=== PATIENT | female | born 1955 ===

== ENCOUNTER 2018-02-02 09:18 | Observation (INO) ==
--- NOTE | 2018-02-02 10:05 | Emergency Department Note ---
Disposition Clinical Impression: ACS (acute coronary syndrome) Disposition: Home, Self-Care Condition: Good General Adult HPI - General Chief complaint: ED Shortness of Breath/Dyspnea Stated complaint: Cough, Feet /Hands Swelling Time Seen by Provider: 02/02/18 09:31 Source: patient Mode of arrival: private vehicle Limitations: no limitations - History of Present Illness HPI Narrative: 62F PMHx hypertension, hyperlipidemia, CVA, [place] with one stent 5 years ago, presents today with worsening SOB, hand and leg swelling. She went to [facility] on Tuesday and reports symptoms presented soon afterwards. She denies eating seafood or anything abnormal. Unable to recall her medications, but reports lisinopril sounds familiar; states that she has been taking her BP medications without changes for many years. Nothing seems to make dry cough or SOB better or worse. She reports swelling of hands and feet have self-improved overall. Reports subjective fever and chills, denies nausea, vomiting, abdominal pain, diarrhea, dysuria. Follows up closely with cardiology in regards to CAD with stents. Unsure if she is taking any anticoagulation. Patient had 325mg aspirin this morning. Pain Scale: 0 - Related Data Home Medications Medication Instructions Recorded Confirmed Aspirin [Lo-Dose Aspirin EC] 81 mg PO DAILY 02/02/18 02/02/18 Clopidogrel [Plavix] 75 mg PO DAILY 02/02/18 02/02/18 Diphenoxylate/Atropine [Lomotil 1 tab PO DAILY PRN 02/02/18 02/02/18 2.5 mg/0.025 mg] Lisinopril/Hydrochlorothiazide 2 tab PO DAILY 02/02/18 02/02/18 [Zestoretic 20-25 mg Tablet] Metoprolol [Lopressor] 50 mg PO BID 02/02/18 02/02/18 Ranolazine [Ranexa] 1,000 mg PO BID 02/02/18 02/02/18 Rosuvastatin [Crestor] 20 mg PO HS 02/02/18 02/02/18 hydrALAZINE [HydrALAZINE] 50 mg PO TID 02/02/18 02/02/18 Allergies Allergy/AdvReac Type Severity Reaction Status Date / Time Penicillins [PCN] Allergy Hives Verified 02/02/18 09:33 Review of Systems: As Per HPI Constitutional: Reports: fever, chills Eyes: Denies: eye pain Cardiovascular: Reports: dyspnea on exertion. Denies: chest pain, syncope Respiratory: Reports: cough, dyspnea. Denies: wheezes Gastrointestinal: Denies: nausea, vomiting, diarrhea, hematemesis Genitourinary: Denies: dysuria Neurological: Reports: weakness. Denies: headache Endocrine: Denies: heat or cold intolerance, polydipsia, polyuria Past Medical History - Past Medical History Medical history: Reports: CVA, hyperlipidemia, hypertension, myocardial infarction Psychiatric history: Reports: anxiety, depression - Social History Smoking Status: Never smoker Smokeless Tobacco Status: No Alcohol use: Reports: occasionally Drug use: Reports: none Physical Exam - General Limitations: no limitations General appearance: alert, in no apparent distress - Head Head exam: atraumatic, normocephalic, normal inspection - Eye Eye exam: Present: normal appearance - Expanded Eye Exam Pupils: Left: reactive - ENT ENT exam: normal exam, normal oropharynx, mucous membranes moist - Expanded ENT Exam External ear exam: Present: normal external inspection Mouth exam: Present: normal external inspection Teeth exam: Present: normal inspection Throat exam: Present: normal inspection - Neck Neck exam: Present: normal inspection, full ROM, trachea midline - Chest Chest inspection: Present: normal inspection, symmetric chest wall rise - Respiratory Respiratory exam: Present: normal lung sounds bilaterally - Cardiovascular Cardiovascular exam: Present: regular rate, normal rhythm, normal heart sounds - Abdominal Exam Abdominal exam: Present: soft, Non-Tender. Absent: tenderness, distention, guarding, rebound, rigidity - Extremities Exam Extremities exam: Present: normal inspection, full ROM. Absent: tenderness, pedal edema - Expanded Upper Extremity Exam Shoulder exam: Present: normal inspection, full ROM Arm exam: Present: normal inspection, full ROM Elbow exam: Present: normal inspection, full ROM Forearm/Wrist exam: Present: normal inspection, full ROM Hand exam: Present: normal inspection, full ROM Vascular exam: Normal: capillary refill, radial pulse - Expanded Lower Extremity Exam Hip/Pelvis exam: Present: normal inspection, full ROM Upper leg exam: Present: normal inspection, full ROM Knee exam: Present: normal inspection, full ROM Lower leg exam: Present: normal inspection, full ROM Ankle exam: Present: normal inspection, full ROM Foot/toe exam: Present: normal inspection, full ROM Neurovascular/Tendon exam: Absent: motor deficit, sensory deficit, tendon deficit - Back Exam Back exam: Present: normal inspection, full ROM. Absent: tenderness - Neurological Exam Neurological exam: Present: alert, oriented X3 - Expanded Neurological Exam Patient oriented to: Present: person, place, time Coma Scale Eye Opening: Spontaneous Coma Scale Motor Response: Obeys Commands Coma Scale Verbal Response: Oriented Coma Scale Total: 15 - Psychiatric Psychiatric exam: Present: normal affect, normal mood - Skin Skin exam: Present: warm, dry, intact, normal color Course Course Narrative: Patient is in no acute distress. Physical exam unremarkable. Blood pressure elevated despite patient stating compliance and close follow-up with medication. Stat CXR, EKG, BMP ordered. HEART score 4 in the setting of 62F with worsening dypsnea, history of abnormal EKG, no acute changes, previous WA and CVA. Patient expresses symptoms of facial angioedema, dry cough, suggesting adverse effects of chronic lisinopril use. However, due to HEART score 4, medical decision to admit for further cardiac evaluation is recommended. Patient is aware and agreeable to management plan. Spoke with Dr. Lu, who agrees with plan. Pending consult to admitting hospitalist. - Reevaluation(s) Reevaluation #1: Patient without acute changes. Spoke with admitting hospitalist Dr. Green, who recommends to consult patient's current paper machine back tender in regards to her current state and for recommendations. Patient reports her paper machine back tender is Dr. Kunz at [facility]. Pending contact with paper machine back tender. Patient to be admitted for observation. Reevaluation #2: Spoke with Dr. Kunz, paper machine back tender at [facility]. He reports patient had LHC and stress test completed in the last 2 years due to comprehensive CAD history, neither with acute abnormalities. He is agreeable to admitting patient for further evaluation. No further recommendations. Dr. Green aware and agrees to admission. Vital Signs Temperature 98.1 F 02/02/18 09:21 Pulse Rate 85 02/02/18 09:21 Respiratory Rate 22 02/02/18 09:21 Blood Pressure 165/95 02/02/18 09:21 O2 Sat by Pulse Oximetry 98 02/02/18 09:21 Temperature 98.1 F 02/02/18 09:24 Pulse Rate 73 02/02/18 10:51 Respiratory Rate 16 06/07/18 10:51 Blood Pressure 135/84 02/02/18 10:51 O2 Sat by Pulse Oximetry 97 02/02/18 10:51 Oxygen Delivery Oxygen Delivery Room Air Medical Decision Making - Lab Data Result diagrams: 02/02/18 10:10 02/02/18 10:10 Lab Results 02/02/18 02/02/18 Range/Units 10:10 10:10 WBC 8.0 (4.3-11.1) K/mcL RBC 5.08 H (3.82-4.97) M/mcL Hgb 15.2 (11.5-15.4) g/dL Hct 45.5 H (35.3-44.9) % MCV 89.6 (83.0-100.0) fL MCH 29.9 (28.0-33.3) pg MCHC 33.4 (31.6-35.5) g/dL RDW 12.4 (11.5-14.5) % Plt Count 181 (140-400) K/mcL MPV 11.0 (9.4-12.4) fL Immature Gran % 0.4 (0-4) % Seg Neutrophils % 75.5 % Lymphocytes % 15.3 % Monocytes % 6.8 % Eosinophils % 1.4 % Basophils % 0.6 % Neutrophils # 6.0 (1.6-8.9) K/mcL Lymphocytes # 1.2 (0.6-4.6) K/mcL Monocytes # 0.5 (0.0-1.3) K/mcL Eosinophils # 0.1 (0.0-0.6) K/mcL Basophils # 0.1 (0.0-0.2) K/mcL Sodium 139 (136-145) mEq/L Potassium 3.9 (3.5-5.1) mEq/L Chloride 106 (98-107) mEq/L Carbon Dioxide 23 (23-29) mEq/L BUN 13 (8-23) mg/dL Creatinine 0.93 (0.60-1.20) mg/dL Est GFR ( Amer) > 60 (> 60) Est GFR (Non-Af Amer) > 60 (> 60) BUN/Creatinine Ratio 14 (6-26) Glucose 150 H (70-105) mg/dL Calculated Osmolality 291 (280-300) Calcium 9.6 (8.6-10.3) mg/dL Troponin I < 0.03 (< 0.04) ng/mL - EKG Data EKG #1 EKG shows normal: sinus rhythm Rhythm: NSR When compared to previous EKG there are: no significant changes Interpretation: no acute changes, normal EKG
[2018-02-02 10:31] LABS: Basophils # 0.1 K/mcL (0.0-0.2); Basophils % 0.6 %; Eosinophils # 0.1 K/mcL (0.0-0.6); Eosinophils % 1.4 %; Hematocrit 45.5 % (35.3-44.9); Hemoglobin 15.2 g/dL (11.5-15.4); Immature Granulocytes % 0.4 % (0-4); Lymphocytes # 1.2 K/mcL (0.6-4.6); Lymphocytes % 15.3 %; Mean Corpuscular HGB Conc 33.4 g/dL (31.6-35.5); Mean Corpuscular Hemoglobin 29.9 pg (28.0-33.3); Mean Corpuscular Volume 89.6 fL (83.0-100.0); Monocytes # 0.5 K/mcL (0.0-1.3); Monocytes % 6.8 %; Platelet Count 181 K/mcL (140-400); Red Blood Count 5.08 M/mcL (3.82-4.97); Red Cell Distribution Width 12.4 % (11.5-14.5); Segmented Neutrophils % 75.5 %
[2018-02-02 10:52] LABS: BUN/Creatinine Ratio 14 (6-26); Blood Urea Nitrogen 13 mg/dL (8-23); Calcium 9.6 mg/dL (8.6-10.3); Carbon Dioxide 23 mEq/L (23-29); Chloride 106 mEq/L (98-107); Glucose 150 mg/dL (70-105); Osmolality,Calculated 291 (280-300); Potassium 3.9 mEq/L (3.5-5.1); Sodium 139 mEq/L (136-145); eGFR For African Americans > 60 (> 60); eGFR For Non-African Americans > 60 (> 60)
--- NOTE | 2018-02-02 10:55 | Emergency Department Note ---
Disposition Clinical Impression: ACS (acute coronary syndrome) Disposition: Admitted As Inpatient Condition: Good Referrals: NONE,PCP [Primary Care Provider] - Es Gannon [Family Provider] - Forms: ED Satisfaction Letter General Adult HPI - General Chief complaint: ED Shortness of Breath/Dyspnea Stated complaint: Cough, Feet /Hands Swelling Time Seen by Provider: 02/02/18 09:31 Source: patient Mode of arrival: private vehicle Limitations: no limitations - History of Present Illness Pain Scale: 0 - Related Data Allergies Allergy/AdvReac Type Severity Reaction Status Date / Time Penicillins [PCN] Allergy Hives Verified 02/02/18 09:33 Constitutional: Reports: fever, chills Eyes: Denies: eye pain Cardiovascular: Reports: dyspnea on exertion. Denies: chest pain, syncope Respiratory: Reports: cough, dyspnea. Denies: wheezes Gastrointestinal: Denies: nausea, vomiting, diarrhea, hematemesis Neurological: Reports: weakness. Denies: headache Endocrine: Denies: heat or cold intolerance, polydipsia, polyuria Past Medical History - Past Medical History Medical history: Reports: CVA, hyperlipidemia, hypertension, myocardial infarction Psychiatric history: Reports: anxiety, depression - Social History Smoking Status: Never smoker Smokeless Tobacco Status: No Alcohol use: Reports: occasionally Drug use: Reports: none Physical Exam - General Limitations: no limitations General appearance: alert, in no apparent distress Course - Reevaluation(s) Reevaluation #1: ATTESTATION NOTE I examined this patient and my medical decision-making was reviewed with the Resident Physician, Jose Ríos. I agree with the documented findings, disposition and treatment plan as described except to the extent set forth below. I have personally performed a face to face evaluation on this patient. I have reviewed and agree with the care plan. Briefly: 62-year-old female history of coronary artery disease had a cardiac catheterization about a year ago which showed a blockage but they were unable to stented. Resents with dry cough history of swelling around the eyes hands and feet about a week ago which has resolved. Patient is been on lisinopril for about 4 years. Patient's chest is clear no peripheral edema neurologically nonfocal EKG shows nonspecific ST-T changes were with her however comparison with the prior EKG showed no acute ischemic changes. We calculated a heart score and it was for. About 3 usually they recommended admission which we discussed with the patient and reassured decision-making she agreed. No entries been ordered. Patient took an aspirin this morning. Troponin other screening labs pending. Admission disposition pending Time: 10:20 Vital Signs Temperature 98.1 F 02/02/18 09:21 Pulse Rate 85 02/02/18 09:21 Respiratory Rate 22 02/02/18 09:21 Blood Pressure 165/95 02/02/18 09:21 O2 Sat by Pulse Oximetry 98 02/02/18 09:21 Temperature 98.1 F 02/02/18 09:24 Pulse Rate 84 02/02/18 09:35 Respiratory Rate 18 02/02/18 09:35 Blood Pressure 150/115 02/02/18 09:35 O2 Sat by Pulse Oximetry 99 02/02/18 09:35 Oxygen Delivery Oxygen Delivery Room Air
[2018-02-02 11:05] LABS: Troponin I < 0.03 ng/mL (< 0.04)
[2018-02-02] MEDS ORDERED: Acetaminophen 325 MG TABLET PO PRN (13:54)
[2018-02-02] MEDS ORDERED: Naloxone 0.4 MG/ML INJ IVP PRN (13:54)
[2018-02-02] MEDS ORDERED: Diphenoxylate/Atropine 1 TAB TABLET PO PRN (13:56)
[2018-02-02] MEDS ORDERED: Ondansetron 4 MG/2 ML VIAL IVP PRN (14:01)
[2018-02-02] MEDS ORDERED: Nitroglycerin 0.4 MG TAB.SUBL SL PRN (14:01)
[2018-02-02] MEDS ORDERED: GuaiFENesin/Dextromethorphan TABLET PO PRN (14:02)
[2018-02-02] MEDS: hydrALAZINE 25 MG TABLET PO SCH ×2 (14:15→22:00)
--- NOTE | 2018-02-02 15:26 | Internal Med History&Physical ---
<AhsanMatthew Tamayo - Last Filed: 02/02/18 16:04> Date of Encounter: 02/02/18 Time of Encounter: 13:00 Internal Medicine - H&P: HPI Chief complaint: CP Admitted From: Emergency Dept Plans for Post Hospital Care: Home History of present illness: Ms. Raphael is a 62 year old female w/PMH of CVA 4 years ago, HLD, HTN, and myocardial infarction 4 years ago presents from the ED with chief complaint of chest pain today that is centralized in her chest as chest pressure and radiates to the left and right arms. Pt. reports she has hx of angina. States she went to beach 1 week ago and had swelling in bilateral UEs and LEs which has now resolved. Denies dx of CHF. States that sx come on at rest or w/ exertion. Reports exhaustion after sx that are accompanied by heart flutter and palpitations. Reports fatigue for two weeks, dry cough, chills, nausea, and diarrhea. No recent abx. Pt. denies vomiting, headache, changes in vision, SOB, abdominal pain, unusual bleeding, constipation, dizziness, lightheadedness, pre- syncope, or syncope. Past Med Surg Social Fam HX - Past Medical History Source: patient, old records reviewed Medical history: CVA (4 years ago), hyperlipidemia, hypertension, myocardial infarction (4 years ago) Psychiatric history: anxiety, depression - Past Surgical History Surgical History: angioplasty/stent (x2 ) Additional surgical history: cardiac stent x2 - Social History Smoking Status: Never smoker Smokeless Tobacco Status: No Alcohol use: occasionally Drug use: none Current living situation: Home, With Family Activity Level: Independent ambulation Recent Out of Country Travel Within the Last 8 Weeks: No Exposure or Possible Exposure to Illness During Travel: No - Family History Father Race: Family Member Ethnicity: Non- Age at : 64 Cause of : PA Hx Family Cardiac Disorders: Yes (CAD, PA, CHF) Grandfather Race: Family Member Ethnicity: Non- Living Status: Age at : 60 Cause of : PA Hx Family Cardiac Disorders: Yes (PA, HTN) Mother Race: Family Member Ethnicity: Non- Living Status: Still Living Hx Family Medical Disorders: No Sister Race: Family Member Ethnicity: Non- Living Status: Still Living Hx Family Cancer: Yes (Breast) Internal Medicine - H&P: Meds Aspirin [Lo-Dose Aspirin EC] 81 mg PO DAILY 02/02/18 [History] Clopidogrel [Plavix] 75 mg PO DAILY 02/02/18 [History] Diphenoxylate/Atropine [Lomotil 2.5 mg/0.025 mg] 1 tab PO DAILY PRN 02/02/18 [ History] Lisinopril/Hydrochlorothiazide [Zestoretic 20-25 mg Tablet] 2 tab PO DAILY 02/02 [History] Metoprolol [Lopressor] 50 mg PO BID 02/02/18 [History] Ranolazine [Ranexa] 1,000 mg PO BID 02/02/18 [History] Rosuvastatin [Crestor] 20 mg PO HS 02/02/18 [History] hydrALAZINE [HydrALAZINE] 50 mg PO TID 02/02/18 [History] 3 Allergy/AdvReac Type Severity Reaction Status Date / Time Penicillins [PCN] Allergy Hives Verified 02/02/18 09:33 All Systems PM: A 10-system review of systems was performed and is negative for pertinent findings except as documented above in the HPI. - Constitutional Constitutional: as per HPI, chills, fatigue, weakness, no fever(s), no night sweats - EENT Eyes: no change in vision, no discharge, no pain, no photophobia Ears: no ear discharge, no ear pain, no tinnitus Nose, mouth and throat: no dysphagia, no nasal discharge, no neck pain, no sore throat - Breasts Breasts: as per HPI - Cardiovascular Cardiovascular ROS IM: as per HPI, chest pain, edema (Bilateral UEs and LEs), irregular heart rhythm, palpitations, no diaphoresis, no dyspnea, no lightheadedness, no syncope - Respiratory Respiratory: as per HPI, cough, no dyspnea, no wheezing, no excessive phlegm production - Gastrointestinal Gastrointestinal: as per HPI, diarrhea, no abdominal pain, no hematemesis, no hematochezia, no melena, no nausea, no vomiting - Genitourinary Genitourinary: no change in urinary stream, no dysuria, no flank pain, no hematuria Menstruation: as per HPI - Musculoskeletal Musculoskeletal ROS IM: no numbness, no tingling - Integumentary Integumentary IM: no rash, no unusual bruising - Neurological Neurological ROS: no confusion, no convulsions, no focal weakness, no numbness, no tingling, no tremor(s) - Psychiatric Psychiatric: as per HPI, anxiety, depression - Endocrine Endocrine IM: as per HPI - Hematologic/Lymphatic Hematologic/Lymphatic: no easy bruising - Allergic/Immunologic Allergic/Immunologic: as per HPI - Constitutional Vitals: Temp Pulse Resp BP Pulse Ox 98.1 F 78 18 151/79 97 02/02/18 11:59 02/02/18 11:59 02/02/18 11:59 02/02/18 11:59 02/02/18 11:59 General appearance: Present: cooperative, mild distress (Chest pressure), A&O X 3, pleasant, obese, answers questions appropriately - Head Head exam: Present: atraumatic, normocephalic - Eye Eye exam: Present: PERRL, conjuntiva pink, sclera anicteric Pupils: Present: PERRL - ENT ENT exam: Present: normal exam - Neck Neck exam general surgery: Present: supple, trachea midline. Absent: lymphadenopathy - Respiratory Respiratory exam: Present: CTAB. Absent: accessory muscle use, rales, rhonchi, wheezes - Cardiovascular Cardiovascular exam: Present: RRR, +S1, +S2. Absent: diastolic murmur, gallop, rubs, systolic murmur - GI/Abdominal GI/Abdominal exam: Present: normal bowel sounds, soft, no peritoneal signs. Absent: distended, tenderness - Rectal Rectal exam: Present: deferred - Additional comments: exam deferred. - Extremities Exam Extremities exam: Present: warm, radial pulses palpable and symmetrical. Absent : calf tenderness, cyanotic, pedal edema - Back Exam Back exam: Present: normal inspection - Neurological Exam Neurological exam: Present: CN II-XII intact, oriented X3, no focal deficits. Absent: pronater drift, facial droop, speech deficit - Psychiatric Psychiatric exam: Present: normal affect, normal mood - Skin Skin exam: Present: dry, intact Internal Med - H&P Results - Labs CBC & Chem 7: 02/02/18 10:10 02/02/18 10:10 - EKG Data EKG shows normal: sinus rhythm - EKG Data Prior EKG available for review: no EKG comments: 02/02/18 15:43 EKG dated 02/02/18 shows sinus rhythm with occasional ventricular premature complexes, moderate voltage criteria for LVH. Consider normal variant. - Diagnostic Studies Chest x-ray Additional comments: Impressions Chest X-Ray 02/02/18 09:50 IMPRESSION: No acute cardiopulmonary disease. D/ / Sincere Braden MD / Sincere Braden MD Interpreting Provider: Sincere Braden MD - Assessment and plan (1) Chest pain Current Visit: Yes Status: Acute Assessment and plan: Acute CP that began today as centralized chest pressure with radiation to left and right arms. Nausea but no vomiting. Patient reports symptoms accompanied by heart flutter and palpitations, and extreme exhaustion. Denies history of CHF diagnosis. History of previous PA and CVA 4 years ago with stent 2. Recent bilateral edema in UEs and LEs. Denies recent cardiac workup. Initial troponin <0.03. Trend. Echocardiogram. Continuous cardiac telemetry. Supplemental O2/SPO2 monitoring when necessary. Nothing by mouth at midnight for a.m. nuclear stress test. Continue patient's aspirin, Plavix, hydralazine, lisinopril/HCTZ, Lopressor, Ranexa, and Crestor. Consider cardiology consult based on abnormal troponins and/or echocardiogram and stress test results. Patient discussed with Dr. Garcia who agrees w/plan of care. Pt. is high risk for further morbidity and cardiac event based on current sx and chest pressure, hx of previous PA and CVA, stents x2, familial risk factors; and personal risk factors of HTN, HLD, and obesity. Observation. Qualifiers: Chest pain type: other chest pain Qualified Code(s): R07.89 - Other chest pain; R07.8 - Other chest pain (2) Hx of myocardial infarction, greater than 8 weeks Current Visit: Yes Status: Chronic Assessment and plan: Hx of previous PA 4 years ago. Pt. currently having CP. Initial troponin <0.03. Trend. Continuous cardiac telemetry. Continue HTN and HLD medications. Aspirin. Plavix. (3) HLD (hyperlipidemia) Current Visit: Yes Status: Chronic Assessment and plan: Hx of chronic HLD. Lipid panel in a.m. labs. Continue pts. Crestor. Qualifiers: Hyperlipidemia type: pure hypercholesterolemia Qualified Code(s): E78.00 - Pure hypercholesterolemia, unspecified; E78.0 - Pure hypercholesterolemia (4) HTN (hypertension) Current Visit: Yes Status: Chronic Assessment and plan: Hx of chronic HTN. Monitor pt. and VS. Continue pts. Hydralazine and Lopressor. Qualifiers: Hypertension type: essential hypertension Qualified Code(s): I10 - Essential (primary) hypertension (5) History of CVA (cerebrovascular accident) Current Visit: Yes Status: Resolved Assessment and plan: Hx of CVA four years ago. No residual effects or deficits. Monitor. (6) DVT prophylaxis Current Visit: Yes Status: Acute Assessment and plan: Heparin 5000 units subcutaneous every 8 for DVT prophylaxis. Monitor patient for signs of bleeding. (7) Weakness Current Visit: Yes Status: Acute Assessment and plan: Acute weakness and fatigue over past 2 weeks. Falls/safety precautions, up with assist, and bedrest with bathroom privileges with assist only. - Time Spent With Patient Total time spent is greater than 50% in coordination of care (as documented) at patient's floor/unit and/or counseling patient: Greater than 35 minutes <Stiven Garcia - Last Filed: 02/02/18 21:03> Date of Encounter: 02/02/18 Internal Medicine - H&P: HPI History of present illness: Ms. Raphael is a 62 year old female All Systems PM: A 10-system review of systems was performed and is negative for pertinent findings except as documented above in the HPI. - Constitutional Vitals: Temp Pulse Resp BP Pulse Ox 99.3 F 100 16 137/93 98 02/02/18 19:27 02/02/18 19:27 02/02/18 19:27 02/02/18 19:27 02/02/18 19:27 Internal Med - H&P Results - Labs CBC & Chem 7: 02/02/18 10:10 02/02/18 10:10 Labs: Cardiac Enzymes 02/02/18 Range/Units 16:03 Troponin I < 0.03 (< 0.04) ng/mL - Attending Attestation Patient seen and examined H&P reviewed discussed with COURT ASSISTANT S Patient seen and examined, patient with past medical history of coronary artery disease status post 2 stent, history of angina, patient brought to the emergency room today with complain of midsternal chest pain radiating to bilateral upper extremities , she complaining of generalized fatigue tiredness over last 2 weeks, patient denies any chest pain now . Has history of gastroesophageal reflux disease, patient stated she is drinking 16 ounces at [employer] in addition to 2 cup of coffee daily. History of reflux like symptoms , patient is complaining of chronic cough more at night time . Denies any black stool blood in stool Physical exam Chest clear to auscultation bilateral Herat S1, S2 N RRR Abdomen soft nontender nondistended no organomegaly Extremities no edema Assessment and plan Chest Pain R/O ACS Chronic cough possibly induced by gastroesophageal reflux disease [place] the 40s possible induced by gastroesophageal reflux disease Add Protonix twice a day. Counseling on avoiding caffeinated materia lifestyle modification, add small dose of the steroid to help with inflammation for possible laryngitis secondary to reflux disease. With her significant risk factor would order stress test - Assessment and plan (1) Chest pain Current Visit: Yes Status: Acute Qualifiers: Chest pain type: other chest pain Qualified Code(s): R07.89 - Other chest pain; R07.8 - Other chest pain (2) History of CVA (cerebrovascular accident) Current Visit: Yes Status: Resolved (3) Hx of myocardial infarction, greater than 8 weeks Current Visit: Yes Status: Chronic (4) HLD (hyperlipidemia) Current Visit: Yes Status: Chronic Qualifiers: Hyperlipidemia type: pure hypercholesterolemia Qualified Code(s): E78.00 - Pure hypercholesterolemia, unspecified; E78.0 - Pure hypercholesterolemia (5) HTN (hypertension) Current Visit: Yes Status: Chronic Qualifiers: Hypertension type: essential hypertension Qualified Code(s): I10 - Essential (primary) hypertension (6) DVT prophylaxis Current Visit: Yes Status: Acute (7) Weakness Current Visit: Yes Status: Acute - Time Spent With Patient Total time spent is greater than 50% in coordination of care (as documented) at patient's floor/unit and/or counseling patient:
[2018-02-02] MEDS: predniSONE 20 MG TABLET PO SCH (22:00)
[2018-02-02] MEDS: Ranolazine 500 MG TAB.ER.12H PO SCH (22:00)
[2018-02-02] MEDS: *HR* Heparin 5,000 UNIT/ML VIAL SQ SCH (22:00)
[2018-02-03 05:44] LABS: Basophils % 0.3 %; Eosinophils % 0.1 %; Hematocrit 45.2 % (35.3-44.9); Hemoglobin 15.1 g/dL (11.5-15.4); Immature Granulocytes % 0.3 % (0-4); Lymphocytes # 0.7 K/mcL (0.6-4.6); Lymphocytes % 9.9 %; Mean Corpuscular HGB Conc 33.4 g/dL (31.6-35.5); Mean Corpuscular Hemoglobin 29.5 pg (28.0-33.3); Mean Corpuscular Volume 88.3 fL (83.0-100.0); Mean Platelet Volume 11.4 fL (9.4-12.4); Monocytes # 0.2 K/mcL (0.0-1.3); Monocytes % 2.1 %; Neutrophils # 6.3 K/mcL (1.6-8.9); Platelet Count 186 K/mcL (140-400); Red Blood Count 5.12 M/mcL (3.82-4.97); Red Cell Distribution Width 12.7 % (11.5-14.5); Segmented Neutrophils % 87.3 %
[2018-02-03] MEDS ORDERED: Regadenoson 0.4 MG/5 ML SYRINGE IVP ONE (05:58)
[2018-02-03] MEDS: *HR* Heparin 5,000 UNIT/ML VIAL SQ SCH ×2 (06:03→13:53)
[2018-02-03 06:04] LABS: Alanine Aminotransferase 27 Units/L (7-52); Albumin 4.3 g/dL (3.5-5.7); Albumin/Globulin Ratio 1.4 (1.1-2.2); Alkaline Phosphatase 85 Units/L (34-104); Aspartate Amino Transferase 29 Units/L (13-39); BUN/Creatinine Ratio 18 (6-26); Blood Urea Nitrogen 14 mg/dL (8-23); Calcium 9.5 mg/dL (8.6-10.3); Carbon Dioxide 23 mEq/L (23-29); Chloride 103 mEq/L (98-107); Chol/HDL Ratio 4.3 (0-4.9); Cholesterol 278 mg/dL (< 200); Glucose 204 mg/dL (70-105); HDL Cholesterol 64 mg/dL (40-59); LDL Cholesterol,Calculated 200 mg/dL (0-99); Magnesium 2.2 mg/dL (1.6-2.6); Osmolality,Calculated 286 (280-300); Potassium 4.1 mEq/L (3.5-5.1); Sodium 135 mEq/L (136-145); Total Protein 7.3 g/dL (6.4-8.9); Triglycerides 68 mg/dL (< 150); eGFR For African Americans > 60 (> 60); eGFR For Non-African Americans > 60 (> 60)
--- NOTE | 2018-02-03 08:01 | Internal Med Progress Note ---
Date of Encounter: 02/03/18 Time of Encounter: 08:00 - Assessment and plan (1) Chest pain Current Visit: Yes Status: Acute Assessment and plan: Acute CP that began today as centralized chest pressure with radiation to left and right arms. Nausea but no vomiting. Patient reports symptoms accompanied by heart flutter and palpitations, and extreme exhaustion. Denies history of CHF diagnosis. History of previous DC and CVA 4 years ago with stent 2. Follow up echo and stress test. continue aspirin and plavix Qualifiers: Chest pain type: other chest pain Qualified Code(s): R07.89 - Other chest pain; R07.8 - Other chest pain (2) History of CVA (cerebrovascular accident) Current Visit: Yes Status: Resolved Assessment and plan: Hx of CVA four years ago. No residual effects or deficits. Monitor. (3) Hx of myocardial infarction, greater than 8 weeks Current Visit: Yes Status: Chronic Assessment and plan: Hx of previous DC 4 years ago. Pt. currently having CP. Initial troponin <0.03. Trend. Continuous cardiac telemetry. Continue HTN and HLD medications. Aspirin. Plavix. (4) HLD (hyperlipidemia) Current Visit: Yes Status: Chronic Assessment and plan: Hx of chronic HLD. Lipid panel in a.m. labs. Continue pts. Crestor. Qualifiers: Hyperlipidemia type: pure hypercholesterolemia Qualified Code(s): E78.00 - Pure hypercholesterolemia, unspecified; E78.0 - Pure hypercholesterolemia (5) HTN (hypertension) Current Visit: Yes Status: Chronic Assessment and plan: Hx of chronic HTN. Monitor pt. and VS. Continue pts. Hydralazine and Lopressor. Qualifiers: Hypertension type: essential hypertension Qualified Code(s): I10 - Essential (primary) hypertension (6) DVT prophylaxis Current Visit: Yes Status: Acute Assessment and plan: Heparin 5000 units subcutaneous every 8 for DVT prophylaxis. Monitor patient for signs of bleeding. (7) Weakness Current Visit: Yes Status: Acute Assessment and plan: Acute weakness and fatigue over past 2 weeks. Falls/safety precautions, up with assist, and bedrest with bathroom privileges with assist only. - Time Spent With Patient Total time spent is greater than 50% in coordination of care (as documented) at patient's floor/unit and/or counseling patient: - Subjective Interval history: No acute events overnight - Constitutional Vitals: Temp Pulse Resp BP Pulse Ox 98.0 F 90 16 115/67 94 02/03/18 03:52 02/03/18 03:52 02/03/18 03:52 02/03/18 03:52 02/03/18 03:52 General appearance: Present: cooperative, mild distress (Chest pressure), A&O X 3, pleasant, obese, answers questions appropriately - Head Head exam: Present: atraumatic, normocephalic - Eye Eye exam: Present: PERRL, conjuntiva pink, sclera anicteric Pupils: Present: PERRL - Neck Neck exam general surgery: Present: supple, trachea midline. Absent: lymphadenopathy - Respiratory Respiratory exam: Present: CTAB. Absent: accessory muscle use, rales, rhonchi, wheezes - Cardiovascular Cardiovascular exam: Present: RRR, +S1, +S2. Absent: diastolic murmur, gallop, rubs, systolic murmur - GI/Abdominal GI/Abdominal exam: Present: normal bowel sounds, soft, no peritoneal signs. Absent: distended, tenderness - Extremities Exam Extremities exam: Present: warm, radial pulses palpable and symmetrical. Absent : calf tenderness, cyanotic, pedal edema - Neurological Exam Neurological exam: Present: CN II-XII intact, oriented X3, no focal deficits. Absent: pronater drift, facial droop, speech deficit - Skin Skin exam: Present: dry, intact Internal Medicine: Result - Labs CBC & Chem 7: 02/03/18 04:33 02/03/18 04:33 Labs: Short CBC 02/03/18 Range/Units 04:33 WBC 7.2 (4.3-11.1) K/mcL Hgb 15.1 (11.5-15.4) g/dL Hct 45.2 H (35.3-44.9) % Plt Count 186 (140-400) K/mcL Neutrophils # 6.3 (1.6-8.9) K/mcL BMP 02/03/18 04:33 Sodium 135 L Potassium 4.1 Chloride 103 Carbon Dioxide 23 BUN 14 Creatinine 0.79 Glucose 204 H Calcium 9.5 Cardiac Enzymes 02/02/18 02/02/18 Range/Units 16:03 22:12 Troponin I < 0.03 < 0.03 (< 0.04) ng/mL Liver Function 06/08/18 Range/Units 04:33 Total Bilirubin 1.0 (0.3-1.0) mg/dL AST 29 (13-39) Units/L ALT 27 (7-52) Units/L Alkaline Phosphatase 85 (34-104) Units/L Albumin 4.3 (3.5-5.7) g/dL Consult Discharge Plan - Plan Referrals: NONE,PCP [Primary Care Provider] - Es Gannon [Family Provider] - Prescriptions: GuaiFENesin/Dextromethorphan [Mucinex Dm] 1 each PO BID PRN #60 tab.er.12h PRN Reason: Cough
[2018-02-03 08:17] LABS: Estimated Average Glucose 126 mg/dl
[2018-02-03] MEDS ORDERED: Aspirin Enteric Coated 81 MG Tablet PO SCH (09:00)
[2018-02-03] MEDS: Ranolazine 500 MG TAB.ER.12H PO SCH (09:49)
[2018-02-03] MEDS: hydrALAZINE 25 MG TABLET PO SCH ×2 (09:49→13:53)
[2018-02-03] MEDS: predniSONE 20 MG TABLET PO SCH (10:00)
[2018-02-03 10:49] VITALS: BP 87/45
[2018-02-03] MEDS ORDERED: 0.9 % Sodium Chloride 500 ML ONE (11:07)
--- NOTE | 2018-02-03 12:55 | Discharge Summary ---
Orders not resulted at time of discharge: Pending orders 02/02/18 12:50 EKG [ECG 12 lead ECG] [ECG] Stat 02/02/18 13:59 NM carmen perf SPECT multi [NM] Routine 02/04/18 04:00 Complete Blood Count [HEME] AM 0400 Comprehensive Metabolic Panel AM 0400 02/05/18 04:00 Complete Blood Count [HEME] AM 0400 Comprehensive Metabolic Panel AM 0400 Date of Encounter: 02/03/18 Time of Encounter: 13:00 - Discharge Diagnosis (1) Chest pain Priority: Primary Status: Acute Assessment and Plan: 62 year old female w/PMH of CVA 4 years ago, HLD, HTN, and myocardial infarction 4 years ago presents from the ED with chief complaint of chest pain today that is centralized in her chest as chest pressure and radiates to the left and right arms. Pt. reports she has hx of angina. She was assessed with chest pain r/o IA and had a nuclear stress test and 2D echo done which both came back with no acute ischemic changes. She will continue her home meds of aspirin, plavix, ranexa, beta blockers and statin Qualifiers: Chest pain type: other chest pain Qualified Code(s): R07.89 - Other chest pain; R07.8 - Other chest pain (2) History of CVA (cerebrovascular accident) Priority: Secondary Status: Resolved (3) Hx of myocardial infarction, greater than 8 weeks Priority: Secondary Status: Chronic (4) HLD (hyperlipidemia) Priority: Secondary Status: Chronic Qualifiers: Hyperlipidemia type: pure hypercholesterolemia Qualified Code(s): E78.00 - Pure hypercholesterolemia, unspecified; E78.0 - Pure hypercholesterolemia (5) HTN (hypertension) Priority: Secondary Status: Chronic Qualifiers: Hypertension type: essential hypertension Qualified Code(s): I10 - Essential (primary) hypertension (6) DVT prophylaxis Priority: Secondary Status: Acute (7) Weakness Priority: Secondary Status: Acute Hospital course: Ms. Raphael is a 62 year old female - Time Spent with Patient Total time spent providing and/or coordinating discharge services: - Discharge Medications Prescriptions: GuaiFENesin/Dextromethorphan [Mucinex Dm] 1 each PO BID PRN #60 tab.er.12h PRN Reason: Cough Home Medications: Aspirin [Lo-Dose Aspirin EC] 81 mg PO DAILY 02/02/18 [History] Clopidogrel [Plavix] 75 mg PO DAILY 02/02/18 [History] Diphenoxylate/Atropine [Lomotil 2.5 mg/0.025 mg] 1 tab PO DAILY PRN 02/02/18 [ History] Lisinopril/Hydrochlorothiazide [Zestoretic 20-25 mg Tablet] 2 tab PO DAILY 02/02 [History] Metoprolol [Lopressor] 50 mg PO BID 02/02/18 [History] Ranolazine [Ranexa] 1,000 mg PO BID 02/02/18 [History] Rosuvastatin [Crestor] 20 mg PO HS 02/02/18 [History] hydrALAZINE [HydrALAZINE] 50 mg PO TID 02/02/18 [History] GuaiFENesin/Dextromethorphan [Mucinex Dm] 1 each PO BID PRN #60 tab.er.12h 02/03 [Rx] Allergies/Adverse Reactions: 3 Allergy/AdvReac Type Severity Reaction Status Date / Time Penicillins [PCN] Allergy Hives Verified 02/02/18 09:33 Date of admission: 02/02/18 11:13 Primary care physician: PCP NONE - Constitutional Vitals: Temp Pulse Resp BP Pulse Ox 98.0 F 86 17 87/45 93 02/03/18 10:48 02/03/18 10:48 02/03/18 10:48 02/03/18 10:48 02/03/18 10:48 General appearance: Present: cooperative, mild distress (Chest pressure), A&O X 3, pleasant, obese, answers questions appropriately - Head Head exam: Present: atraumatic, normocephalic - Eye Eye exam: Present: PERRL, conjuntiva pink, sclera anicteric Pupils: Present: PERRL - Neck Neck exam general surgery: Present: supple, trachea midline. Absent: lymphadenopathy - Respiratory Respiratory exam: Present: CTAB. Absent: accessory muscle use, rales, rhonchi, wheezes - Cardiovascular Cardiovascular exam: Present: RRR, +S1, +S2. Absent: diastolic murmur, gallop, rubs, systolic murmur - GI/Abdominal GI/Abdominal exam: Present: normal bowel sounds, soft, no peritoneal signs. Absent: distended, tenderness - Extremities Exam Extremities exam: Present: warm, radial pulses palpable and symmetrical. Absent : calf tenderness, cyanotic, pedal edema - Neurological Exam Neurological exam: Present: CN II-XII intact, oriented X3, no focal deficits. Absent: pronater drift, facial droop, speech deficit - Skin Skin exam: Present: dry, intact - Patient Status Disposition: Home, Self-Care - Discharge Instructions Follow Up With: NONE,PCP [Primary Care Provider] - Es Gannon [Family Provider] -
--- NOTE | 2018-02-03 17:17 | Electrocardiograph Report ---
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
== END 2018-02-03 14:56 | disposition home or self-care (01) ==
LOC: EMEROO 09:18 → 2ANU 09:18
PROVIDERS: ADMIT Family Medicine; ATTEND Family Medicine